=== PATIENT | female | born 1940 | race Caucasian/White ===

== ENCOUNTER 2018-01-30 13:10 | Emergency (ER) | payer MEDICARE, OTHER ==
[~2018-01-30] VITALS: Ht 160 cm; Wt 68.0 kg
--- OUTSIDE RECORDS SUMMARY | 2018-01-30 13:12 | XMS REPORT | Clinical Summary ---
Author Author [facility] Address Unknown Phone Unavailable Care Team Providers Care Director Of Corporate Sponsorships Name Role Phone Asked, Pcp PCP Unavailable Allergies No Known Allergies Current Medications Prescription Sig. Disp. Refills Start End Date Status Date levothyroxine (SYNTHROID, Take 100 mcg by mouth Active LEVOXYL) 100 mcg tablet daily. sertraline (ZOLOFT) 100 Take 100 mg by mouth Active MG tablet daily. ALPRAZolam (XANAX) 0.5 MG Take 0.5 mg by mouth Active tablet nightly as needed for anxiety. aspirin (ECOTRIN) 81 MG Take 81 mg by mouth Active enteric coated tablet daily. traZODone (DESYREL) 50 MG Take 50 mg by mouth Active tablet nightly. 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 01/18/2018 Abstract Cardiology Foreign Schmidt MD 03/11/2017 Transcribe Physical Therapy Tuan Parada MD Neck pain (Primary Dx) Orders after 01/29/2017 Family History Medical History Relation Name Comments Cancer Father Heart disease Father Lymphoma Father Cancer Mother Stroke Other Relation Name Status Comments Father Mother Other Alive Social History Tobacco Use Types Packs/Day Years Used Date Never Smoker Smokeless Tobacco: Never Used Alcohol Use Drinks/Week oz/Week Comments No Sex Assigned at Date Recorded Not on file Last Filed Vital Signs Vital Sign Reading Time Taken Blood Pressure 121/82 01/19/2018 12:56 PM CDT Pulse 113 01/19/2018 12:56 PM CDT Temperature - - Respiratory Rate - - Oxygen Saturation - - Inhaled Oxygen - - Concentration Weight 84.8 kg (187 lb) 01/19/2018 12:56 PM CDT Height 157.5 cm (5' 2") 01/19/2018 12:58 PM CDT Body Mass Index 34.2 01/19/2018 12:56 PM CDT Plan of Treatment Date Type Specialty Care Team Description 02/15/2018 Appointment Procedural Cardiology Foreign Schmidt MD [address] [facility] [address] [place] [address] Health Maintenance Due Date Last Done Comments SHINGRIX VACCINE (#1) 1988 ZOSTER VACCINE 1998 PNEUMOCOCCAL 2003 POLYSACCHARIDE VACCINE AGE 65 AND OVER PNEUMOCOCCAL-13 2003 INFLUENZA VACCINE 04/05/2018 Results * ECG 12 lead (01/19/2018 12:54 PM) Component Value Ref Range Ventricular rate 69 Atrial rate 69 AL interval 162 QRSD interval 150 QT interval 452 QTC interval 484 P axis 1 51 QRS axis 1 -54 T wave axis 63 EKG impression Normal sinus rhythm with sinus arrhythmia-Left axis deviation-Left bundle branch block-Abnormal ECG-No previous ECGs available- Specimen Performing Laboratory [facility] [address] [place] [address] after 01/29/2017 Insurance Payer Benefit Subscriber ID Type Phone Address Plan / Group MEDICARE MEDICARE xxxxxxxxxx Medicare [place], [place] PART A AND B [employer] xxxxxxxxxx [employer]
[2018-01-30] MEDS ORDERED: ASPIR 8181 MG (14:07)
[2018-01-30] MEDS ORDERED: ZOLOFT50 MG PO (14:07)
[2018-01-30] MEDS ORDERED: SYNTHROID100 MCG PO (14:07)
== END 2018-01-30 14:47 | disposition home or self-care (01) ==
LOC: FSED 13:10
DX: M77.32 Calcaneal spur, left foot (principal); E05.00 Thyrotoxicosis with diffuse goiter without thyrotoxic crisis or storm; Z79.82 Long term (current) use of aspirin
CPT/HCPCS: 99284

== ENCOUNTER → 2018-04-11 | Day surgery (SDC) | payer MEDICARE, OTHER ==
[~2018-04-11] MED LIST: ASPIR 8181 MG PO; FENTANYL CITRATE/PF 100MCG/2 ML INJ ONE; LIPITOR40 MG PO; MIDAZOLAM HCL 2 MG/2 ML VIAL ONE; OR PHACO EYE KIT ONE; PLAVIX75 MG PO; PREOP PHACO EYE KIT ONE; SYNTHROID100 MCG PO; TRAZODONE HCL50 MG PO; XANAX0.5 MG PO; ZOLOFT50 MG PO
== END | disposition home or self-care (01) ==
LOC: OR 09:40
PROVIDERS: ATTEND Ophthalmology
DX: H25.11 Age-related nuclear cataract, right eye (principal); F41.9 Anxiety disorder, unspecified; E03.9 Hypothyroidism, unspecified; I25.10 Atherosclerotic heart disease of native coronary artery without angina pectoris; Z79.82 Long term (current) use of aspirin; Z79.02 Long term (current) use of antithrombotics/antiplatelets; Z95.5 Presence of coronary angioplasty implant and graft
CPT/HCPCS: 66984; J2250; V2632

== ENCOUNTER → 2018-04-25 | Day surgery (SDC) | payer MEDICARE, OTHER | END | disposition home or self-care (01) | LOC: OR 09:07 | PROVIDERS: ATTEND Ophthalmology | DX: H25.12 Age-related nuclear cataract, left eye (principal); I25.10 Atherosclerotic heart disease of native coronary artery without angina pectoris; E78.6 Lipoprotein deficiency; F32.9 Major depressive disorder, single episode, unspecified; Z79.02 Long term (current) use of antithrombotics/antiplatelets; Z79.82 Long term (current) use of aspirin; Z95.5 Presence of coronary angioplasty implant and graft | CPT/HCPCS: 66984; J2250; V2632 ==

== ENCOUNTER → 2020-01-16 | Emergency (ER) | payer MEDICARE, OTHER ==
[~2020-01-16] VITALS: Ht 160 cm; Wt 68.0 kg
[~2020-01-16] MED LIST changes: +ACETAMINOPHEN 325 MG TAB PO ONE; +EYE IRRIGATION (OPTH) 120 ML BTL OP ONE; -FENTANYL CITRATE/PF 100MCG/2 ML INJ ONE; +FLUORESCEIN SOD(OPTH) 1 MG STRP ONE; +FLUORESCEIN SOD(OPTH) 1 MG STRP OP ONE; +GENTAMICIN SULFATE 0.3% OP 5 ML BTL ONE; +GENTAMICIN SULFATE 0.3% OPTH OINT 3.5GM TUBE OP ONE; -MIDAZOLAM HCL 2 MG/2 ML VIAL ONE; -OR PHACO EYE KIT ONE; -PREOP PHACO EYE KIT ONE; +TETRACAINE HCL 0.5% OPTH SOLN 4 ML BTL OP ONE
--- NOTE | 2020-01-16 11:47 | NUR ---
MEDIATELYPATIENT PRESENTED TO WINDOW DEMANDING TO BE SEEN AT ONCE FOR SOMETHING IN HER EYE; WHEN ASKED TO SIGN IN SHE BECAME ARGUMENTATIVE, STATING THAT SHE HAD SOMETHING IN HER EYE AND NEEDED TO BE SEEN I
--- NOTE | 2020-01-16 11:50 | NUR ---
RN TO WINDOW TO SEE PATIENT; INFORMED PATIENT THAT SHE WOULD BE BROUGHT BACK SOON POSSIBLE. PATIENT ASKING "JUST HOW LONG AM I SUPPOSED TO WAIT?". INFORMED PATIENT THAT ANOTHER PATIENT WAS CURRENTLY IN TRIAGE AND THAT SHE WOULD BE BROUGHT BACK SHORTLY.
--- OUTSIDE RECORDS SUMMARY | 2020-01-16 11:51 | XMS REPORT | Clinical Summary ---
Author Author [facility] Address Unknown Phone Unavailable Care Team Providers Care [place] Program Coordinator Name Role Phone Armando Castle MD PCP Allergies No Known Allergies Medications End Date Status Medication Sig Dispensed Refills Start Date Active aspirin (ECOTRIN) 81 MG Take 81 mg by 0 enteric coated tablet mouth daily as needed. Active traZODone (DESYREL) 50 MG Take 2 180 tablet 1 tabletIndications: tablets (100 9 Primary insomnia mg total) by mouth nightly. Additional Information Patient taking differently: 50 mg oral nightly, Informant: Self, Reported on 06/27/2019 4:21 PM Active sertraline (ZOLOFT) 100 Take 2 180 tablet 3 MG tabletIndications: tablets (200 0 Anxiety mg total) by mouth daily. Active atorvastatin (LIPITOR) 40 Take 1 tablet 90 tablet 1 MG tablet (40 mg total) 0 by mouth daily. 11/04/2020 Active SYNTHROID 125 mcg Take 1 tablet 90 tablet 3 tabletIndications: (125 mcg 0 Hypothyroidism, total) by unspecified type mouth daily. 11/12/2020 Active amLODIPine (NORVASC) 10 Take 1 tablet 90 tablet 0 mg tablet (10 mg total) 0 by mouth daily. 03/09/2020 Active ALPRAZolam (XANAX) 0.5 MG Take 1 tablet 30 tablet 2 tabletIndications: (0.5 mg 0 Anxiety total) by mouth nightly as needed for anxiety for up to 90 days. 12/24/2020 Active clopidogreL (PLAVIX) 75 Take 1 tablet 90 tablet 0 mg tablet (75 mg total) 0 by mouth daily. 05/20/2019 Discontinued (Reorder) traZODone (DESYREL) 50 MG Take 50 mg by 0 tablet mouth nightly. 04/17/2019 Discontinued (Reorder) atorvastatin (LIPITOR) 40 Take 1 tablet 90 tablet 4 MG tablet (40 mg total) 8 by mouth nightly for 180 days. 03/15/2019 clopidogrel (PLAVIX) 75 Take 1 tablet 90 tablet 4 mg tablet (75 mg total) 8 by mouth daily for 360 days. 10/31/2019 Discontinued (Reorder) sertraline (ZOLOFT) 100 Take 2 180 tablet 3 MG tabletIndications: tablets (200 9 Anxiety mg total) by mouth daily. 11/05/2019 Discontinued (Reorder) levothyroxine (SYNTHROID, Take 1 tablet 90 tablet 3 LEVOXYL) 125 mcg (125 mcg 9 tabletIndications: total) by Postoperative mouth every hypothyroidism morning. 05/31/2019 Discontinued (Reorder) ALPRAZolam (XANAX) 0.5 MG Take 1 tablet 90 tablet 3 tabletIndications: (0.5 mg 9 Anxiety total) by mouth nightly as needed for anxiety for up to 90 days. 10/14/2019 atorvastatin (LIPITOR) 40 Take 1 tablet 90 tablet 1 MG tablet (40 mg total) 9 by mouth nightly for 180 days. 12/10/2019 Discontinued (Reorder) ALPRAZolam (XANAX) 0.5 MG Take 0.5 mg 0 03/05 tablet by mouth 9 nightly as needed. 06/27/2019 Discontinued ALPRAZolam (XANAX) 0.5 MG TAKE 1 TABLET 90 tablet 1 tabletIndications: NIGHTLY 9 Anxiety NEEDED FOR ANXIETY 12/25/2019 Discontinued (Reorder) clopidogrel (PLAVIX) 75 Take 1 tablet 90 tablet 3 mg tablet (75 mg total) 9 by mouth daily. 11/13/2019 Discontinued amLODIPine (NORVASC) 5 mg Take 1 tablet 90 tablet 1 tablet (5 mg total) 9 by mouth daily. 11/02/2019 Discontinued (Reorder) atorvastatin (LIPITOR) 40 Take 40 mg by 0 MG tablet mouth daily. 11/05/2019 Discontinued levothyroxine (SYNTHROID) Take 1 tablet 90 tablet 3 125 mcg (125 mcg 0 tabletIndications: total) by Postoperative mouth every hypothyroidism morning. 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/22/2019 with angina pectoris [facility]: [id number] Abnormal stress echocardiogram 06/22/2019 Overview: [facility] [id number] Postoperative hypothyroidism 09/12/2018 Anxiety 09/12/2018 Hyperlipidemia 09/12/2018 Cervical disc disease 09/12/2018 Overweight (BMI 25.0-29.9) 09/12/2018 Coronary artery disease involving venetie coronary art sharee of [place] heart 03/03/2018 without angina pectoris Abnormal stress echo 02/24/2018 Overview: [facility] [id number] Encounters Care Team Description Date Type Specialty Armando Castle MD Chronic pain of left knee (Primary Dx) 01/05/2020 Orders Only Internal Medicine Liane Shearer MA Med Refill 12/25/2019 Refill Cardiology Armando Castle MD Anxiety (Primary Dx) 12/10/2019 Orders Only Internal Medicine Liane Shearer MA Med Refill 11/13/2019 Refill Cardiology 11/12/2019 Travel Armando Castle MD Hypothyroidism, unspecified type (Primar y Dx) 11/05/2019 Orders Only Internal Medicine Armando Castle MD Postoperative hypothyroidism 11/05/2019 Orders Only Internal Medicine Liane Shearer MA Med Refill 11/02/2019 Refill Cardiology Armando Castle MD Anxiety 10/31/2019 Orders Only Internal Medicine Armando Castle MD Chronic pain of left knee 10/30/2019 Hospital Radiology Encounter Armando Castle MD Chronic pain of left knee (Primary Dx) 10/24/2019 Orders Only Internal Medicine Armando Castle MD Medicare annual wellness visit, subseque nt (Primary Dx); Overweight (BMI 25.0-29.9); Postoperative hypothyroidism; Coronary artery disease involving venetie coronary artery of venetie heart without angina pectoris; Anxiety; Cervical disc disease; Primary osteoarthritis of left knee; IFG (impaired fasting glucose) 08/13/2019 Office Visit Internal Medicine Foreign Schmidt MD pt advised no change in RX 07/27/2019 Telephone Cardiology Foreign Schmidt MD Med Refill 07/10/2019 Refill Cardiology Foreign Schmidt MD Selective coronary angiography [[id number] (C PT)] 06/29/2019 Surgery Procedural CardioForeign Phelan MD 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 (HCC); Abnormal stress echocardiogram; Hyperlipidemia, unspecified hyperlipidemia type 06/29/2019 Hospital Procedural Cardiolo gy Encounter Foreign Schmidt MD Med Refill 06/22/2019 Refill Cardiology Foreign Schmidt MD 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 (HCC) (Primary Dx); Abnormal stress echocardiogram; Hyperlipidemia, unspecified hyperlipidemia type 06/22/2019 Orders Only Cardiology Armando Castle MD Anxiety 05/31/2019 Refill Internal Medicine Armando Castle MD Primary insomnia (Primary Dx) 05/20/2019 Orders Only Internal Medicine Foreign Schmidt MD CAD in venetie artery (Primary Dx) 04/19/2019 Office Visit Cardiology Tania Pinedo MA Med Refill (Atorvastatin) 04/17/2019 Refill Cardiology Tania Pinedo MA Appointment (Confirmed appointments) 04/17/2019 Telephone Cardiology Mckinley Jones RN Re:MyChart message re "breathlessness an d leg weakness' 01/31/2019 Telephone Cardiology after 01/15/2019 Immunizations Name Administration Dates Next Due FLUZONE HIGH-DOSE PF 09/12/2018 Pneumococcal Conjugate 09/12/2018 13-Valent Family History Medical History Relation Name Comments Heart disease Father Lymphoma Father Pancreatic cancer Mother Stroke Other Relation Name Status Comments Father Mother Other Alive Social History Date Tobacco Use Types Packs/Day Years Used Never Smoker Smokeless Tobacco: Never Used Drinks/Week oz/Week Comments Alcohol Use No Sex Assigned at Date Recorded Not on file Industry Job Start Date Occupation Not on file Not on file Not on file Travel End Travel History Travel Start No recent travel history available. Last Filed Vital Signs Reading Time Taken Comments Vital Sign 155/64 08/13/2019 1:12 PM [employer] Blood Pressure 70 08/13/2019 1:12 PM [employer] Pulse 36.4 C (97.6 F) 06/29/2019 5:15 PM CDT Temperature 22 06/29/2019 8:15 PM CDT Respiratory Rate 94% 06/29/2019 8:15 PM CDT Oxygen Saturation - - Inhaled Oxygen Concentration 70.3 kg (155 lb) 08/13/2019 1:12 PM [employer] Weight 160 cm (5' 3") 08/13/2019 1:12 PM [employer] Height 27.46 08/13/2019 1:12 PM [employer] Body Mass Index Plan of Treatment Care Team Description Date Type Specialty Foreign Schmidt MD [address] [address] 04/10/2020 Office Visit Cardiology Health Maintenance Due Date Last Done Comments SHINGLES VACCINES (#1) 1988 65+ PNEUMOCOCCAL VACCINE 09/12/2019 09/12/2018 (2 of 2 - PPSV23) INFLUENZA VACCINE 04/05/2020 09/12/2018, 09/12/2018 Implants Device Identifier Shelf Expiration Date Model / Serial / L ot Implanted Type Area Manufactur er 10/18/2018 [id number] / / [id number] Stent Coronary Syst Synergy (Mr) Coronary N/A: N/A BSC 3.00mm X 32mm - [id number] Stents INTERVENTI Implanted: 03/03/2018 at [facility] (Quantity not on file) CARDIOLOGY Procedures Comments Procedure Name Priority Date/Time Associated Diag nosis XR KNEE 4+ VW LEFT Routine 10/30/2019 Chronic gloria n of left knee 12:47 PM [employer] BASIC METABOLIC PANEL Routine 08/13/2019 Medicare annual wellness 2:16 PM [employer] visit, subsequent HEMOGLOBIN A1C Routine 08/13/2019 IFG (impaired f asting 2:16 PM [employer] glucose) CBC WITH PLATELET AND Routine 08/13/2019 Medicare annual wellness DIFFERENTIAL 2:16 PM [employer] visit, subsequent T4, FREE Routine 08/13/2019 Postoperative 2:16 PM [employer] hypothyroidism THYROID STIMULATING Routine 08/13/2019 Postoperat sathya HORMONE 2:16 PM [employer] hypothyroidism CV SELECTIVE CORONARY Routine 06/29/2019 Coronary artery disease ANGIOGRAPHY 5:05 PM CDT involving venetie co ronary artery of venetie heart with angina pectoris (HCC) Abnormal stress echocardiogram Hyperlipidemia, unspecified hyperlipidemia type ECG PRE/POST OP Routine 06/29/2019 11:16 AM CDT LIPID PANEL Routine 06/25/2019 Coronary artery disease 3:01 PM CDT involving venetie coronary artery of venetie heart with angina pectoris (HCC) Abnormal stress echocardiogram Hyperlipidemia, unspecified hyperlipidemia type CBC WITH PLATELET AND Routine 06/25/2019 Coronary artery disease DIFFERENTIAL 3:01 PM CDT involving venetie co ronary artery of venetie heart with angina pectoris (HCC) Abnormal stress echocardiogram Hyperlipidemia, unspecified hyperlipidemia type COMPREHENSIVE METABOLIC Routine 06/25/2019 James ry artery disease PANEL 3:01 PM CDT involving venetie co ronary artery of venetie heart with angina pectoris (HCC) Abnormal stress echocardiogram Hyperlipidemia, unspecified hyperlipidemia type PROTHROMBIN TIME WITH INR Routine 06/25/2019 Dianna nary artery disease 3:01 PM CDT involving venetie coronary artery of venetie heart with angina pectoris (HCC) Abnormal stress echocardiogram Hyperlipidemia, unspecified hyperlipidemia type TTE STRESS BICYCLE, W Routine 06/15/2019 CAD in n ative artery COLOR, W DOPPLER ([id number]) 12:05 PM CDT (CLINIC) CV TREADMILL STRESS TEST Routine 06/15/2019 CAD i n venetie artery 12:05 PM CDT ECG 12-LEAD Routine 04/19/2019 CAD in venetie a rtery 11:11 AM CDT after 01/15/2019 Results * XR Knee 4+ Vw Left (10/30/2019 12:47 PM [employer]) Specimen Narrative Performed At EXAMINATION: XR KNEE 4 VW LEFT [facility] CLINICAL HISTORY: M25.562 Pain in lef t knee, G89.29 Other chronic pain, Knee pain persistent > 6wks of conservat sathya tx COMPARISON: None. IMPRESSION: There is no evidence of left knee fract ure, dislocation, or joint effusion. Bone mineralization is within normal limits. Mild osteoarthritis of the medial jessica rtment. [facility]-[id number] Dictated and approved by radiology resi dent/fellow: Americo Mauricio M.D. I, Pilo Triana MD, personally reviewed the images and resident's/fellow's findings and agree with the final repor t. Procedure Note Hm Interface, Radiology Results Incoming - 10/30/2019 2:07 PM [employer] EXAMINATION: XR KNEE 4 VW LEFT CLINICAL HISTORY: M25.562 Pain in left knee, G89.29 Other chronic pain, Knee pain persistent > 6wks of conservative tx COMPARISON: None. IMPRESSION: There is no evidence of left knee fracture, dislocation, or joint effusion. Bone mineralization is within normal limits. Mild osteoarthritis of the medial compartment. [facility]-[id number] Dictated and approved by vice president media relations/fellow: Americo Mauricio M.D. I, Pilo Triana MD, personally reviewed the images and resident's/fellow's findings and agree with the final report. Performing Organization Address City/State/Zipcode Ph one Number [facility] [address] [place] [address] * CBC with platelet and differential (08/13/2019 2:16 PM [employer]) Only the most recent of 2 results within the time period is included. WBC 7.1 3.8 - 10.8 [facility] Thousand/uL [facility] [place] RBC 5.01 3.80 - 5.10 [facility] Million/uL [facility] [place] HGB 14.5 11.7 - 15.5 g/dL [facility] [place] HCT 42.6 35.0 - 45.0 % [facility] [place] MCV 85.0 80.0 - 100.0 fL [facility] [place] MCH 28.9 27.0 - 33.0 pg [facility] [place] MCHC 34.0 32.0 - 36.0 g/dL [facility] [place] RDW 13.5 11.0 - 15.0 % [facility] [place] Platelet count 237 140 - 400 [facility] Thousand/uL [facility] [place] MPV 10.3 7.5 - 12.5 fL [facility] [place] Neutrophils, 4,459 1,500 - 7,800 [facility] absolute cells/uL [facility] [place] Lymphocytes, 1,803 850 - 3,900 cells/uL [facility] absolute [facility] [place] Monocytes, 611 200 - 950 cells/uL [facility] absolute [facility] [place] Eosinophils, 199 15 - 500 cells/uL [facility] absolute [facility] [place] Basophils, 28 0 - 200 cells/uL [facility] absolute [facility] [place] Neutrophils 62.8 % [facility] [place] Lymphocytes 25.4 % [facility] [place] Monocytes 8.6 % [facility] [place] Eosinophils 2.8 % [facility] [place] Basophils + RC 0.4 % [facility] [place] Specimen Blood Narrative Performed At FASTING:NO [facility] FASTING: NO Resulting Agency Comment Performing Organization Information: Site ID: [id number] Name: [facility] Address: [address] [place] [phone] Director: Aime Cui Performing Organization Address [facility] one Number [employer] [place] [phone] * Thyroid stimulating hormone (08/13/2019 2:16 PM [employer]) TSH 0.03 (L) 0.40 - 4.50 mIU/L [employer] [place] Specimen Blood Narrative Performed At FASTING:NO [facility] FASTING: NO Resulting Agency Comment Performing Organization Information: Site ID: [id number] Name: [facility] Address: [address] [place] [phone] Director: Aime Cui Performing Organization Address [facility] one Number [employer] [place] [phone] * T4, free (08/13/2019 2:16 PM [employer]) T4, free 1.6 0.8 - 1.8 ng/dL [employer] [place] Specimen Blood Narrative Performed At FASTING:NO [facility] FASTING: NO Resulting Agency Comment Performing Organization Information: Site ID: [id number] Name: [facility] Address: [address] [place] [phone] Director: Aime Cui Performing Organization Address [facility] one Number [employer] [address] [phone] * Hemoglobin A1c (08/13/2019 2:16 PM [employer]) Hemoglobin A1C 5.8 (H) <5.7 % of total Hgb [facility] Comment: [facility] For someone without known [place] diabetes, a hemoglobin A1c value between 5.7% and 6.4% is consistent with prediabetes and should be confirmed with a follow-up test. For someone with known diabetes, a value <7% indicates that their diabetes is well controlled. A1c targets should be individualized based on duration of diabetes, age, comorbid conditions, and other considerations. This assay result is consistent with an increased risk of diabetes. Currently, no consensus exists regarding use of hemoglobin A1c for diagnosis of diabetes for children. Specimen Blood Narrative Performed At FASTING:NO [facility] FASTING: NO Resulting Agency Comment Performing Organization Information: Site ID: RGA Name: [facility] Address: [address] [place] [phone] Director: Aime Cui Performing Organization Address City/State/Zipcode Ph one Number [employer] [address] [phone] * Basic metabolic panel (08/13/2019 2:16 PM [employer]) Glucose 86 65 - 139 mg/dL [facility] Comment: [facility] Non-fasting [place] reference interval BUN 15 7 - 25 mg/dL [facility] [place] Creatinine 0.63 0.60 - 0.88 mg/dL [facility] Comment: [facility] For patients >49 years of age, [place] the reference limit for Creatinine is approximately 13% higher for people identified as -Faroese. EGFR Non-Afr. 85 > OR = 60 [facility] [place] mL/min/1.73m2 [facility] EGFR 98 > OR = 60 [facility] [place] mL/min/1.73m2 [facility] BUN/creatinine NOT APPLICABLE 6 - 22 (calc) [facility] ratio [facility] [place] Sodium 141 135 - 146 mmol/L [facility] [place] Potassium 3.9 3.5 - 5.3 mmol/L [facility] [place] Chloride 107 98 - 110 mmol/L [facility] [place] CO2 23 20 - 32 mmol/L [facility] [place] Calcium 9.2 8.6 - 10.4 mg/dL [facility] [place] Specimen Blood Narrative Performed At FASTING:NO [facility] FASTING: NO Resulting Agency Comment Performing Organization Information: Site ID: [id number] Name: [facility] Address: [address] [place] [phone] Director: Aime Cui Performing Organization Address City/State/Zipcode Ph one Number [employer] [place] [address] [place] [phone] * mobile lab technician procedure (06/29/2019 5:05 PM CDT) Specimen Narrative Performed At [facility] LM: No significant stenosis. LAD: Widely patent proximal-mid RADHA. ~30% stenosis at D2 ostium. LCx: No signifcant stenosis. RCA: No significant stenosis. After obtaining informed consent, the p ataung was brought to the cardiac catheterization suite. The right wrist was prepped and draped in usual sterile fashion. Lidocaine was used as local anesthetic. A mini-puncture needle was used to access the right rad ial artery. A 6 Fr sheath was placed in the right radial artery and 2 00 mcg of nitroglycerin and 200 mcg of verapamil were administered via the radial sheath to prevent radial artery vasospasm. Heparin was given to prevent radial artery occlusion. A J3.5/3DRC catheter(s) was advanced over a guidewire to the aortic root. The guidewire was removed. Coronary ang iography was performed of both the left and right coronary systems using t he catheter(s). The catheter was then removed over a wire. At the conclusion of the procedure the arterial sheath was removed in the catheterization lab and hemostasis was obtained with a Tracelet. The patient was returned to the manager labor relations ho ing area for recovery. The patient tolerated the procedure wit hout difficulty. Moderate sedation was administered with physician supervisionof patient consciousness, respiration, Oxygen satu ration and CO2 monitoring, beginning at 1651 ( time) f or a total period of 14 minutes. I was physically present for the critic al portions of all procedures performed during this episode of care Performing Organization Address City/State/[facility] Ph one Number [facility] [address] [place] [address], * ECG Pre/Post Op (06/29/2019 11:16 AM CDT) Ventricular 59 [facility] rate Atrial rate 59 [facility] MUSE [place] interval 174 [facility] QRSD interval 154 [facility] QT interval 482 [facility] QTC interval 477 [facility] P axis 1 29 [facility] QRS axis 1 -41 [facility] T wave axis 75 [facility] EKG impression Sinus bradycardia-Left axis [facility] MUSE deviation-Left bundle branch block-Abnormal ECG- Specimen Narrative Performed At This result has an attachment that is n ot available. Performing Organization Address City/[facility] Ph one Number [facility] MUSE [address] [place] [address] * Prothrombin time with INR (06/25/2019 3:01 PM CDT) INR 1.0 [facility] Comment: [facility] Reference Range [place] 0.9-1.1 Moderate-intensity Warfarin Therapy 2.0-3.0 Higher-intensity Warfarin Therapy 3.0-4.0 Prothrombin 10.1 9.0 - 11.5 sec [facility] time Comment: DIAGNOSTICS For more information on this [place] test, go to: http://education.Moonfrye.MedAptus/faq/CTZ458 Specimen Blood Narrative Performed At FASTING:NO [facility] FASTING: NO Resulting Agency Comment Performing Organization Information: Site ID: RGA Name: [facility] Address: [address] [place] [phone] Director: Aime Cui Performing Organization Address City/[facility] Ph one Number [facility] [employer] [place] [phone] * Lipid panel (06/25/2019 3:01 PM CDT) Cholesterol, 139 <200 mg/dL [facility] total [facility] [place] HDL cholesterol 49 (L) >50 mg/dL [facility] [place] Triglycerides 113 <150 mg/dL [facility] LDL cholesterol 70 mg/dL (calc) [facility] calculated Comment: DIAGNOSTICS Reference range: <100 [place] Desirable range <100 mg/dL for primary prevention; <70 mg/dL for patients with CHD or diabetic patients with > or = 2 CHD risk factors. LDL-C is now calculated using the Suellen calculation, which is a validated novel method providing better accuracy than the Friedewald equation in the estimation of LDL-C. Grabiel PAGE et al. PABLO. 2013;310(19): 6543-3917 (http://education.Carmine/faq/ZJS967) Cholesterol/HDL 2.8 <5.0 (calc) [facility] ratio [facility] [place] Non-HDL 90 <130 mg/dL (calc) [facility] cholesterol Comment: DIAGNOSTICS For patients with diabetes [place] plus 1 major ASCVD risk factor, treating to a non-HDL-C goal of <100 mg/dL (LDL-C of <70 mg/dL) is considered a therapeutic option. Specimen Blood Narrative Performed At FASTING:NO [facility] FASTING: NO Resulting Agency Comment Performing Organization Information: Site ID: RGA Name: [facility] Address: [address] [place] [phone] Director: Aime Cui Performing Organization Address City/State/Zipcode Ph one Number [employer] [place] [address] [place] [phone] * Comprehensive metabolic panel (06/25/2019 3:01 PM CDT) Glucose 78 65 - 139 mg/dL [facility] Comment: DIAGNOST[facility] Non-fasting [place] reference interval BUN 15 7 - 25 mg/dL [facility] [place] Creatinine 0.73 0.60 - 0.88 mg/dL [facility] Comment: DIAGNOSTICS For patients >49 years of age, [place] the reference limit for Creatinine is approximately 13% higher for people identified as -Faroese. EGFR Non-Afr. 78 > OR = 60 [facility] [place] mL/min/1.73m2 [facility] EGFR 90 > OR = 60 [facility] [place] mL/min/1.73m2 [facility] BUN/creatinine NOT APPLICABLE 6 - 22 (calc) [facility] ratio [facility] [place] Sodium 142 135 - 146 mmol/L [facility] [place] Potassium 3.9 3.5 - 5.3 mmol/L [facility] [place] Chloride 106 98 - 110 mmol/L [facility] [place] CO2 28 20 - 32 mmol/L [facility] [place] Calcium 9.9 8.6 - 10.4 mg/dL [facility] [place] Protein 7.0 6.1 - 8.1 g/dL [facility] [place] Albumin, S 4.3 3.6 - 5.1 g/dL [facility] [place] Globulin, total 2.7 1.9 - 3.7 g/dL [facility] (calc) [facility] [place] Albumin/globuli 1.6 1.0 - 2.5 (calc) [facility] n ratio [facility] Total bilirubin 0.7 0.2 - 1.2 mg/dL [facility] [place] Alkaline 94 33 - 130 U/L [facility] phosphatase [facility] [place] AST 16 10 - 35 U/L [facility] [place] ALT 15 6 - 29 U/L [facility] [place] Specimen Blood Narrative Performed At FASTING:NO [facility] FASTING: NO Resulting Agency Comment Performing Organization Information: Site ID: RGA Name: [facility] Address: [address] [place] [address] Director: Aime Cui Performing Organization Address City/State/Zipcode Ph one Number [facility] [employer] [place] [address] [place] [phone] * Echocardiogram stress Doppler with contrast 3d if needed (06/15/2019 12:05 PM CDT) Specimen Narrative Performed At [facility] Stress Ech ocardiography Report Pat.Name: AMINATA GARCIAS Pat.ID: [id number] St.Date: 06/15/2019 Refer.MD: FOREIGN SCHMIDT MD Exam Time: 11:12:00 AM Study Type:Stress Echo Height: 62in Weight: 157lb BSA: 1.73 m2 Age: 1 1940,78Y Sex: FEMALE BP: 172/74 HR: 57 bpm Sonogrphr: ESTEFANIA Pressley Pat. Stat.:Outpatient Study Status:Final Echo Event ID:[id number] Order ID: [id number] Reason for Study:CAD in [place] artery [ I25.10 (ICD-10-CM)] History / Clinical:Coronary Artery Dise ase Procedures: 2D Echo, Colorflow Doppler Race: C SUMMARY: There was a malfunction with capture of the peak stress images on this patient. Only rest and recovery could be stored. Stress images could therefore not be interpreted. Stress test and ECG are as above. Severe hypertensive response occurred a t low level exercise. Exercise tolerance is significantly impaired. Suggest repeat study after better BP co ntrol. The patient will not be charged for the current study. FINDINGS: LV: LV size is upper limits of normal. There is moderate eccentric LV hypertroph y. LV EF is moderately depressed. Global hypokinesis. Sep caitlin motion is paradoxical secondary to LBBB or conduction a bnormality. Estimated EF is 35-39%. RV: RV size is normal. RV syst olic function is normal. LA: LA volume is mildly enlarg ed. RA: RA size is normal. AO: Aortic root diameter is no rmal. SAM: No pericardial effusion. AV: No structural AV abnormali ties noted. MV: No structural MV abnormali ties noted. PV: No structural PV abnormali ties noted. TV: No structural TV abnormali ties noted. Robles: Diastolic dysfunction Grade I (Mild): Impaired relaxation with normal LV filling pressures. STRESS: Baseline Vital Signs: Test Treadmill ECG Normal sinus, IVCD, LAD Protocol Joseph HR 57 Duration 03:00Atropine 0 Rest BP: 172/74 Max. Workload 4.6 Stress [place] Int: 174 ms Aponte Score -3 Stress QRS Int 148 ms Aponte Score Group moderate risk Stress Test Results: Max HR 122 Target HR [address]: -1.1 mm % Target: 87 % MaxBP 244/83 O2 Sat 95 % Max RPP 16498 Symptoms and Complications: Reason for Stopping Test: Patient achie monico greater than or equal 85% maximal predicted heart rate for age Symptoms Chest pain, Shortness of br eath Other Early termination Stress ECG Interp The S-T segment infante es of LBBB are present, therefore, S-T change with stress are o f uncertain significance, Blood Pressure during stress suggestive of hy pertensive response, Exercise tolerance is impaired MEASUREMENTS: 2D Parasternal Long [place] Ao An 2.4 cm LVPWd 1 cm Ao Rtd 3.4 cm Index 2 cm/m2 LA Ds 3.2 cm IVSd 1.3 cm RWT 0.4 LVIDd 5 cm Index 2.9 cm/m2 LV Mass 221.7 g (87-129 ) LVIDs 3.9 cm LVM Index 128.1 g/m LV%fs 23 % LVOT 2.5 cm LV FracAreaCh LV Ad 25.1 cm (9.5-2 2.3) LV A% 39.7 % LV As 15.1 cm (4-11. 6) LA Sng Plane LA Area 19.1 cm (8.8-23 .4) LA Vol 59.4 ml Index 34.3 ml/m2 LA LngAx 4.9 cm LVOT LVOT Area 4.8 cm Signed 06/19/2019 09:21 AM Ernst Clemente M.D. Procedure Note Interface, Radiology Results In - 06/19/2019 9:22 AM CDT [facility] Stress Echocardiography Report Pat.Name: AMINATA GACRIAS Pat.ID: [id number] .Date: 06/15/2019 Refer.MD: FOREIGN SCHMIDT MD Exam Time: 11:12:00 AM Study Type:Stress Echo Height: 62in Weight: 157lb BSA: 1.73 m2 Age: 1 1940,78Y Sex: FEMALE BP: 172/74 HR: 57 bpm Sonogrphr: ESTEFANIA Pressley Pat. Stat.:Outpatient Study Status:Final Echo Event ID:[id number] Order ID: [id number] Reason for Study:CAD in [place] artery [I25.10 (ICD-10-CM)] History / Clinical:Coronary Artery Disease Procedures: 2D Echo, Colorflow Doppler Race: C SUMMARY: There was a malfunction with capture of the peak stress images on this patient. Only rest and recovery could be stored. Stress images could therefore not be interpreted. Stress test and ECG are as above. Severe hypertensive response occurred at low level exercise. Exercise tolerance is significantly impaired. Suggest repeat study after better BP control. The patient will not be charged for the current study. FINDINGS: LV: LV size is upper limits of normal. There is moderate eccentric LV hypertrophy. LV EF is moderately depressed. Global hypokinesis. Septal motion is paradoxical secondary to LBBB or conduction abnormality. Estimated EF is 35-39%. RV: RV size is normal. RV systolic function is normal. LA: LA volume is mildly enlarged. RA: RA size is normal. AO: Aortic root diameter is normal. SAM: No pericardial effusion. AV: No structural AV abnormalities noted. MV: No structural MV abnormalities noted. PV: No structural PV abnormalities noted. TV: No structural TV abnormalities noted. Robles: Diastolic dysfunction Grade I (Mild): Impaired relaxation with normal LV filling pressures. STRESS: Baseline Vital Signs: Test Treadmill ECG Normal sinus, IVCD, LAD Protocol Joseph HR 57 Duration 03:00Atropine 0 Rest BP: 172/74 Max. Workload 4.6 Stress [place] Int: 174 ms Aponte Score -3 Stress QRS Int 148 ms Aponte Score Group moderate risk Stress Test Results: Max HR 122 Target HR [address]: -1.1 mm % Target: 87 % MaxBP 244/83 O2 Sat 95 % Max RPP [id number] Symptoms and Complications: Reason for Stopping Test: Patient achieved greater than or equal 85% maximal predicted heart rate for age Symptoms Chest pain, Shortness of breath Other Early termination Stress ECG Interp The S-T segment changes of LBBB are present, therefore, S-T change with stress are of uncertain significance, Blood Pressure during stress suggestive of hypertensive response, Exercise tolerance is impaired MEASUREMENTS: 2D Parasternal Long [place] Ao An 2.4 cm LVPWd 1 cm Ao Rtd 3.4 cm Index 2 cm/m2 LA Ds 3.2 cm IVSd 1.3 cm RWT 0.4 LVIDd 5 cm Index 2.9 cm/m2 LV Mass 221.7 g (87-129) LVIDs 3.9 cm LVM Index 128.1 g/m LV%fs 23 % LVOT 2.5 cm LV FracAreaCh LV Ad 25.1 cm (9.5-22.3) LV A% 39.7 % LV As 15.1 cm (4-11.6) LA Sng Plane LA Area 19.1 cm (8.8-23.4) LA Vol 59.4 ml Index 34.3 ml/m2 LA LngAx 4.9 cm LVOT LVOT Area 4.8 cm Signed 06/19/2019 09:21 AM Ernst Clemente M.D. Performing Organization Address City/State/Zipcode Ph one Number [facility] [address] [place] [address] * Cv stress test (06/15/2019 12:05 PM CDT) Resting HR 58 [facility] Resting BP 172 [facility] Peak MET 4.6 [facility] Achieved Protocol Name [facility] MUSE Time in 00:03:00 [facility] Exercise Phase Max Systolic BP 244 [facility] Max Diastolic 83 [facility] BP Max Heart Rate 122 [facility] Max Predicted 140 [facility] Heart Rate Target HR (220 - Age)*85% [facility] Formula Test Indication CAD [facility] Arrhy During Ex [facility] ECG Interp [facility] Before EX ECG Interp [facility] During Ex Ex Summary [facility] MUSE Comment Overall HR [facility] MUSE Response to Exercise Overall BP [facility] M[facility] Response To Exercise Reason for Fatigue [facility] MUSE Termination Stress Test Waveform interpreted in report [facility] SE Impression associated with image study . No interpretation is provided as part of this Stress ECG report.--Electronically Signed By Bryn BERNAL, Ernst Pascal ([id number]), video effects editor Peyton Suarez ([id number]) on 06/19/2019 9:32:37 AM Specimen Narrative Performed At This result has an attachment that is n ot available. Performing Organization Address [facility] [place] [facility] M[facility] [address] [place] [address] * ECG 12 lead (04/19/2019 11:11 AM CDT) Ventricular 62 [facility] rate Atrial rate 62 [facility] [place] interval 162 [facility] QRSD interval 158 [facility] QT interval 470 [facility] QTC interval 477 [facility] P axis 1 46 [facility] QRS axis 1 -39 [facility] T wave axis 60 [facility] EKG impression Sinus rhythm with fusion [facility] complexes and premature atrial complexes with aberrant conduction-Left axis deviation-Left bundle branch block-Abnormal ECG-In automated comparison with ECG of 30-MAR-2018 15:12,-fusion complexes are now present-aberrant conduction is now present- Specimen Narrative Performed At This result has an attachment that is n ot available. Performing Organization Address [facility] one Number [facility] MUSE [address] [place] [address] after 01/15/2019 Insurance Type Payer Benefit Subscriber ID Effective Phone Address Plan / Dates Group Medicare MEDICARE MEDICARE xxxxxxxxxxx [id number] Z[place]ID[place], PART A AND resent [place] Commercial [employer] [place] xxxxxxxxxx 2012-P L LIFE [place] Advance Directives For more information, please contact: [phone] Patient Automation Design Engineer Explanation Type Date Recorded Advance Directives, 10/30/2019 12:21 PM Living Will and Medical Power of Relocation Director
--- OUTSIDE RECORDS SUMMARY | 2020-01-16 11:51 | XMS REPORT ---
Author Author [facility] t Organization [facility] Address [address] [place] [address] Phone Unavailable Care Team Providers Care Airborne Weapons Technical Manager Name Role Phone NONSTAFF PCP Unavailable Joanie Castle MD Attphys Manfred UMANA, Liane Attphys Unavailable Dionisio Schmidt MD Attphys Khris UMANA, Tania Attphys Unavailable Robert PÉREZ, Mckinley Attphys Unavailable FOREIGN SCHMIDT Admphysimon Unavailable Payers Payer Name Policy Type Policy Number Effective Date Expiration Date S thai MEDICAREMEDICARE PART A AND Bxxxxxxxxxxx2003-PresentLINDSAY MIRE[place] 2003 00:00:00 [facility] AETNACONTINENTAL LIFE INS CO OF GHENTxxxxxxxxxx2012- PresentCommercial xxxxxxxxxx 2012 00:00:00 [facility] Medicare A & B [id number] 2003 00:00:00 [facility] Aetna Medicare Supplement Plan [id number] [facility] Problems Condition Name Condition Details Condition Category Status Onset Date Resolution Date Last Treatment Date Treating Clinician Comments Source 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 Disease Active 2019-06-22 00:00:00 Overview: Added automatically from request for surgery [id number] Dejuan Warren Abnormal stress echocardiogram Abnormal stress echocardiogram Disea se Active 2019-06-22 00:00:00 Overview: Ad ded automatically from request for surgery [id number] Dejuan Warren Postoperative hypothyroidism Postoperative hypothyroidism Disease Active 2018-09-12 00:00:00 Dejuan Warren Anxiety Anxiety Disease Active 2018-09-12 00:00:00 Dejuan Warren Hyperlipidemia Hyperlipidemia Disease Active 2018-09-12 00:00:00 Dejuan Warren Cervical disc disease Cervical disc disease Disease Active 201 05-06-08 00:00:00 Dejuan nguyen Overweight (BMI 25.0-29.9) Overweight (BMI 25.0-29.9) Disease Active 2018-09-12 00:00:[address] Coronary artery disease involving inupiat coronary artery of inupiat heart without angina pectoris Coronary artery disease involving inupiat coronary artery of inupiat heart without angina pectoris Disease Active 2018-03-03 00:00:00 Dejuan Warren Abnormal stress echo Abnormal stress echo Disease Active 00:00:00 Overview: Added automatically from reque st for surgery [id number] Dejuan Warren Allergies, Adverse Reactions, Alerts This patient has no known allergies or adverse reactions. Family History Family Member Diagnosis Comments Start Date Stop Date Source Natural father Heart disease Dejuan Warren Natural father Lymphoma [facility] Natural mother Pancreatic cancer Corine Warren Other Stroke Dejuan Sorensen ist Social History Social Habit Start Date Stop Date Quantity Comments Source Sex Assigned At Corine Warren Alcohol intake 2019-08-13 00:00:00 2019-08-13 00:00:00 Current non-drinker of alcohol (finding) Dejuan Warren Smoking Status Start Date Stop Date Source Never smoker Dejuan nguyen Medications Ordered Medication Name Filled Medication Name Start Date Stop Da te Current Medication? Ordering Clinician Indication Dosage Frequency Signature (SIG) Comments Components Source clopidogreL (PLAVIX) 75 mg tablet 2019-12-25 00:00:00 2020 04:59:00 Yes 75mg QD Take 1 tablet (75 mg total) by mouth zarina ly. Dejuan Warren ALPRAZolam (XANAX) 0.5 MG tablet 2019-12-10 00:00:00 03-10 04:59:00 Yes [id number] .5mg QD Take 1 tablet (0 .5 mg total) by mouth nightly as needed for anxiety for up to 90 days. Dejuan yu amLODIPine (NORVASC) 10 mg tablet 2019-11-13 00:00:00 2020 05:59:00 Yes 10mg QD Take 1 tablet (10 mg total) by mouth zarina Warren SYNTHROID 125 mcg tablet 2019-11-05 00:00:00 2020-11-05 05:5 9:00 Yes [id number] 125ug QD Take 1 tablet (125 mcg total) by mouth daily. Dejuan Warren levothyroxine (SYNTHROID) 125 mcg tablet 2019-11 00:00:00 2019-11-05 00:00:00 No [id number] 125ug QD Take 1 tablet (125 mcg total) by mouth every morning. Dejuan Warren atorvastatin (LIPITOR) 40 MG tablet 2019-11-02 21:05:4 2 2019-11-02 00:00:00 No 40mg QD Take 40 mg by mouth daily. Dejuan Warren atorvastatin (LIPITOR) 40 MG tablet 2019-11-02 00:00:00 Yes 40mg QD Take 1 tablet (40 mg total) by mouth daily. Mike Warren sertraline (ZOLOFT) 100 MG tablet 2019-10-31 00:00:00 Ye simon [id number] 200mg QD Take 2 tablets (200 mg total) by mouth daily. Dejuan Warren aspirin (ECOTRIN) 81 MG enteric coated tablet 2019-08-13 19:14:4 2 Yes 81mg Q24H Take 81 mg by mouth daily as needed. Dejuan Warren amLODIPine (NORVASC) 5 mg tablet 2019-07-10 00:00:00 2019-11 00:00:00 No 5mg QD Take 1 tablet (5 mg total) by mouth daily. Dejuan Warren clopidogrel (PLAVIX) 75 mg tablet 2019-06-22 00:00:00 2019 00:00:00 No 75mg QD Take 1 tablet (75 mg total) by mouth zarina Warren ALPRAZolam (XANAX) 0.5 MG tablet 2019-05-31 00:00:00 2019-06 00:00:00 No [id number] TAKE 1 TABLET NIGHTLY NEEDED FOR ANXIETY Dejuan Warren traZODone (DESYREL) 50 MG tablet 2019-05-21 02:46:53 2019-05 00:00:00 No 50mg QD Take 50 mg by mouth nightly. Dejuan Warren traZODone (DESYREL) 50 MG tablet 2019-05-20 00:00:00 Yes [id number] 100mg QD Take 2 tablets (100 mg total) by mouth nightly. Dejuan Warren atorvastatin (LIPITOR) 40 MG tablet 2019-04-17 00:00:0 0 2019-10-15 05:59:00 No 40mg QD Take 1 tablet (40 mg total) by mouth nig htly for 180 days. Dejuan Warren ALPRAZolam (XANAX) 0.5 MG tablet 2019-03-16 00:00:00 2019-12 00:00:00 No .5mg QD Take 0.5 mg by mouth nightly as needed. Dejuan Warren ALPRAZolam (XANAX) 0.5 MG tablet 2018-12-05 00:00:00 2019-05 00:00:00 No [id number] .5mg QD Take 1 tablet (0.5 m g total) by mouth nightly as needed for anxiety for up to 90 days. Dejuan yu levothyroxine (SYNTHROID, LEVOXYL) 125 mcg tablet 2018-10-22 00:00:00 2019-11-05 00:00:00 No [id number] 125ug QD Take 1 tablet (125 mcg total) by mouth every morning. Dejuan Warren sertraline (ZOLOFT) 100 MG tablet 2018-09-12 00:00:00 2019 00:00:00 No [id number] 200mg QD Take 2 tablets (200 mg total) by mouth d aily. Dejuan Warren atorvastatin (LIPITOR) 40 MG tablet 2018-03-20 00:00:0 0 2019-04-17 00:00:00 No 40mg QD Take 1 tablet (40 mg total) by mouth nig htly for 180 days. Dejuan Warren clopidogrel (PLAVIX) 75 mg tablet 2018-03-20 00:00:00 2018 04:59:00 No 75mg QD Take 1 tablet (75 mg total) by mouth zarina ly for 360 days. Dejuan Warren Aspirin (Aspir 81) 81 Mg Tablet. Aspirin (Aspir 81) 81 Mg Tablet.dr Yes [facility] Levothyroxine Sodium (Synthroid) 100 Mcg Tab Levothyro xine Sodium (Synthroid) 100 Mcg Tab Yes 100 Today At 6:00AM [facility] Sertraline Hcl (Zoloft) 50 Mg Tablet Sertraline Hcl (Zoloft) 50 Mg Tablet Yes 100 Daily [facility] Immunizations Ordered Immunization Name Filled Immunization Name Date Status Comments Source Pneumococcal Conjugate 13-Valent 2018-09-12 00:00:00 Compl eted Dejuan Warren FLUZONE HIGH-DOSE PF 2018-09-12 00:00:00 Completed Dejuan Warren Vital Signs Vital Name Observation Time Observation Value Comments Source Systolic blood pressure 2019-08-13 19:12:00 155 mm[Hg] Dejuan Warren Diastolic blood pressure 2019-08-13 19:12:00 64 mm[Hg] Dejuan Warren Heart rate 2019-08-13 19:12:00 70 /min Dejuan Warren Body height 2019-08-13 19:12:00 160 cm Dejuan Warren Body weight 2019-08-13 19:12:00 70.308 kg Dejuan Warren BMI 2019-08-13 19:12:00 27.46 kg/m2 Dejuan Warren Respiratory rate 2019-06-30 01:15:00 22 /min Lindsay Warren Oxygen saturation in Arterial blood by Pulse oximetry 2018-09 01:15:00 94 /min Dejuan Warren Body temperature 2019-06-29 22:15:00 36.44 Lisa Lindsay Warren Procedures Procedure Date / Time Performed Performing Clinician Sourc e XR KNEE 4+ VW LEFT 2019-10-30 18:47:51 Armando Castle THYROID STIMULATING HORMONE 2019-08-13 20:16:00 Armando Castle T4, FREE 2019-08-13 20:16:00 Armando Castle CBC WITH PLATELET AND DIFFERENTIAL 2019-08-13 20:16:00 Armando Castle HEMOGLOBIN A1C 2019-08-13 20:16:00 Armando Castle BASIC METABOLIC PANEL 2019-08-13 20:16:00 Donal Castlesus JeovanySteve Warren CV SELECTIVE CORONARY ANGIOGRAPHY 2019-06-29 22:05:07 Melinda Schmidt ECG PRE/POST OP 2019-06-29 16:16:26 Foreign Schmidt PROTHROMBIN TIME WITH INR 2019-06-25 20:01:00 Foreign Schmidt COMPREHENSIVE METABOLIC PANEL 2019-06-25 20:01:00 Foreign Schmidt CBC WITH PLATELET AND DIFFERENTIAL 2019-06-25 20:01:00 Foreign Schmidt LIPID PANEL 2019-06-25 20:01:00 Foreign Schmidt CV TREADMILL STRESS TEST 2019-06-15 17:05:00 Foreign Schmidt TTE STRESS BICYCLE, W COLOR, W DOPPLER ([id number]) (CLINIC) 2018 17:05:00 Foreign Schmidt ECG 12-LEAD 2019-04-19 16:11:55 Foreign Schmidt Plan of Care Planned Activity Planned Date Details Comments Source Future Scheduled Test [code = ] Future Scheduled Test [code = ] Future Scheduled Test [code = ] Encounters Start Date/Time End Date/Time Encounter Type Admission Type [facility] Care Department Encounter ID Source 2019-10-30 00:00:00 2019-10-30 00:00:00 Outpatient [facility] [id number] [facility] 2019-06-29 00:00:00 2019-06-29 00:00:00 Outpatient FOREIGN SCHMIDT [facility] 021 [id number] [facility] 2018-01-30 13:10:00 2018-01-30 14:47:00 Departed Emergency Room [facility] [id number] [facility] Results Test Description Test Time Test Comments Results Result Comments Source XR Knee 4+ Vw Left 2019-10-30 20:04:10 Hm Interf brandee, Radiology Results 10/30/2019 2:07 PM CSTEXAMINATION: XR KNEE 4 VW LEFTCLINICAL HISTORY: M25.562 Pain in left knee, G89.29 Other chronic pain, Knee pain persistent > 6wks of conservative txCOMPARISON: None.IMPRESSION:There is no evidence of left knee fracture, dislocation, or joint effusion. Bone mineralization is within normal limits.Mild osteoarthritis of the medial compartment.[facility]-[id number] and approved by vice president of talent acquisition/fellow: Scott Gonzáles, Ni Triana MD, personally reviewed the images and resident's/fellow's findings and agree with the final report. [facility] Basic metabolic panel 2019-08-14 07:55:00 Test Item Glucose (test code = 2345-7) 86 mg/dL 65-139 Non-fasting reference interval BUN (test code = 3094-0) 15 mg/dL 7-25 Creatinine (test code = 2160-0) 0.63 mg/dL 0.6-0.88 For patients >49 years of age, the reference limitfor Creatinine is approximately 13% higher for peopleidentified as -Nauruan. EGFR Non-Afr. Nauruan (test code = 2775) 85 > OR = 60 mL /min/1.73m2 EGFR (test code = 42008-1) 98 > OR = 60 mL/min/1.73m2 BUN/creatinine ratio (test code = 3097-3) NOT APPLICABLE 6- 22 (souleymane c) Sodium (test code = 2951-2) 141 mmol/L 135-146 Potassium (test code = 2823-3) 3.9 mmol/L 3.5-5.3 Chloride (test code = 2075-0) 107 mmol/L 98-110 CO2 (test code = 8-9) 23 mmol/L 20-32 Calcium (test code = 24042-1) 9.2 mg/dL 8.6-10.4 VAISHALI (test code = VAISHALI) FASTING:NOFASTING: NO RAC (test code = RAC) Performing Organization Info rmation: Site ID: RGA Name: [facility] Address: [address] [place] [phone] Director: Aime WarrenHemoglobin [id number] 07:55:00* Test Item Value Reference Range Interpretation Comments Hemoglobin A1C (test code = 4548-4) 5.8 <5.7 % of total Hg b H For someone without known diabetes, a hemoglobin A1c value between 5.7% and 6.4% is consistent withprediabetes and should be confirmed with a follow-up test. For someone with known diabetes, a value <7%indicates that their diabetes is well controlled. [id number] should be individualized based on duration ofdiabetes, age, comorbid conditions, and otherconsiderations. This assay result is consistent with an increased riskof diabetes. Currently, no consensus exists regarding use ofhemoglobin A1c for diagnosis of diabetes for children. VAISHALI (test code = VAISHALI) FASTING:NOFASTING: NO RAC (test code = RAC) Performing Organization Info rmation: Site ID: JUAN JOSÉ Name: [facility] Address: [address] [place] [address] Director: Aime Cui Lab Interpretation (test code = 84185-1) Abnormal [facility], [id number] 07:55:00* Test Item Value Reference Range Interpretation Comments T4, free (test code = 3024-7) 1.6 ng/dL 0.8-1.8 VAISHALI (test code = VAISHALI) FASTING:NOFASTING: NO RAC (test code = RAC) Performing Organization Info rmation: Site ID: JUAN JOSÉ Name: [facility] Address: [address] [place] [address] Director: Aime Cui [facility] MethodistThyroid stimulating [id number] 07:55:00* Test Item Value Reference Range Interpretation Comments TSH (test code = 3016-3) 0.03 0.40- 4.50 mIU/L L VAISHALI (test code = VAISHALI) FASTING:NOFASTING: NO RAC (test code = RAC) Performing Organization Info rmation: Site ID: ABYA Name: [facility] Address: [address] [place], [place] [id number] Director: Aime Cui Lab Interpretation (test code = 55050-4) Abnormal [facility] with platelet and [id number] 07:55:00* Test Item Value Reference Range Interpretation Comments WBC (test code = 6690-2) 7.1 3.8- 10.8 Thousand/uL RBC (test code = 789-8) 5.01 3.80- 5.10 Million/uL HGB (test code = 718-7) 14.5 g/dL 11.7-15.5 HCT (test code = 4544-3) 42.6 % 35-45 MCV (test code = 787-2) 85.0 fL 80-100 MCH (test code = 785-6) 28.9 pg 27-33 MCHC (test code = 786-4) 34.0 g/dL 32-36 RDW (test code = 788-0) 13.5 % 11-15 Platelet count (test code = 777-3) 237 140- 400 Thousand/u L MPV (test code = 776-5) 10.3 fL 7.5-12.5 Neutrophils, absolute (test code = 751-8) 4459 1,500 - 7,80 0 cells/uL Lymphocytes, absolute (test code = 731-0) 1803 850- 3,900 c ells/uL Monocytes, absolute (test code = 742-7) 611 200- 950 cells /uL Eosinophils, absolute (test code = 711-2) 199 15- 500 cell s/uL Basophils, absolute (test code = 704-7) 28 0- 200 cells/u L Neutrophils (test code = 770-8) 62.8 % Lymphocytes (test code = 736-9) 25.4 % Monocytes (test code = 5905-5) 8.6 % Eosinophils (test code = 713-8) 2.8 % Basophils + RC (test code = 706-2) 0.4 % VAISHALI (test code = VAISHALI) FASTING:NOFASTING: NO RAC (test code = RAC) Performing Organization Info rmation: Site ID: RGA Name: [facility] Address: [address] [place] [phone] Director: Aime Cui [facility] [id number] 00:44:52 LM: No significant stenosis. LAD: Widely patent proximal-mid RADHA. ~30% stenosis at D2 ostium. LCx: No signifcant stenosis. RCA: No significant stenosis. After obtaining informed consent, the patient was brought to the cardiac catheterization suite. The right wrist was prepped and draped in usual sterile fashion. Lidocaine was used as local anesthetic. A mini-puncture needle was used to access the right radial artery. A 6 Fr sheath was placed in the right radial artery and 200 mcg of nitroglycerin and 200 mcg of verapamil were administered via the radial sheath to prevent radial artery vasospasm. Heparin was given to prevent radial artery occlusion. A J3.5/3DRC catheter(s) was advanced over a guidewire to the aortic root. The guidewire was removed. Coronary angiography was performed of both the left and right coronary systems using the catheter(s). The catheter was then removed over a wire. At the conclusion of the procedure the arterial sheath was removed in the catheterization lab and hemostasis was obtained with a Tracelet. The patient was returned to the laboratory worker holding area for recovery. The patient tolerated the procedure without difficulty. Moderate sedation was ad ministered with physician supervisionof patient consciousness, respiration, Oxyg en saturation and CO2 monitoring, beginning at 1651 ( time) for a tota l period of 14 minutes. I was physically present for the critical portions of al l procedures performed during this episode of care Dejuan Moya Pre/Post [id number] 00:04:24* Test Item Value Reference Range Interpretation Comments Ventricular rate (test code = 253) 59 Atrial rate (test code = 255) 59 NE interval (test code = 266) 174 QRSD interval (test code = 260) 154 QT interval (test code = 264) 482 QTC interval (test code = 265) 477 P axis 1 (test code = 267) 29 QRS axis 1 (test code = 268) -41 T wave axis (test code = 270) 75 EKG impression (test code = 273) Sinus bradycardia-Lef t axis deviation-Left bundle branch block-Abnormal ECG- Dejuan WarrenComprehensive metabolic [id number] 10:04:00* Test Item Value Reference Range Interpretation Comments Glucose (test code = 2345-7) 78 mg/dL 65-139 Non-fasting reference interval BUN (test code = 3094-0) 15 mg/dL 7-25 Creatinine (test code = 2160-0) 0.73 mg/dL 0.6-0.88 For patients >49 years of age, the reference limitfor Creatinine is approximately 13% higher for peopleidentified as -Nauruan. EGFR Non-Afr. Nauruan (test code = 2775) 78 > OR = 60 mL /min/1.73m2 EGFR (test code = 75228-9) 90 > OR = 60 mL/min/1.73m2 BUN/creatinine ratio (test code = 3097-3) NOT APPLICABLE 6- 22 (souleymane c) Sodium (test code = 2951-2) 142 mmol/L 135-146 Potassium (test code = 2823-3) 3.9 mmol/L 3.5-5.3 Chloride (test code = 2074-0) 106 mmol/L 98-110 CO2 (test code = 2027-9) 28 mmol/L 20-32 Calcium (test code = 67803-4) 9.9 mg/dL 8.6-10.4 Protein (test code = 2885-2) 7.0 g/dL 6.1-8.1 Albumin, S (test code = 1751-7) 4.3 g/dL 3.6-5.1 Globulin, total (test code = 45538-6) 2.7 1.9- 3.7 g/dL (c alc) Albumin/globulin ratio (test code = 1759-0) 1.6 1.0- 2.5 ( calc) Total bilirubin (test code = 1974-2) 0.7 mg/dL 0.2-1.2 Alkaline phosphatase (test code = 6768-6) 94 U/L 33-130 AST (test code = 1920-8) 16 U/L 10-35 ALT (test code = 1742-6) 15 U/L 6-29 VAISHALI (test code = VAISHALI) FASTING:NOFASTING: NO RAC (test code = RAC) Performing Organization Info rmation: Site ID: RGA Name: [facility] Address: [address] [place] [phone] Director: Aime Zaidi MethodistLipid [id number] 10:04:00* Test Item Value Reference Range Interpretation Comments Cholesterol, total (test code = 2093-3) 139 mg/dL <200 HDL cholesterol (test code = 2085-9) 49 mg/dL >50 L Triglycerides (test code = 2571-8) 113 mg/dL <150 LDL cholesterol calculated (test code = 94221-9) 70 mg/dL (calc) Reference range: <100 Desirable range <100 mg/dL for primary prevention; <70 mg/dL for patients with CHD or diabetic patients with > or = 2 CHD risk factors. LDL-C is now calculated using the Suellen calculation, which is a validated novel method providing better accuracy than the Friedewald equation in the estimation of LDL-C. Grabiel PAGE et al. PABLO. 2013;310(19): 2925-3712 (http:/ /education.[employer]/faq/YPI992) Cholesterol/HDL ratio (test code = 9830-1) 2.8 <5.0 (calc) Non-HDL cholesterol (test code = 79863-7) 90 <130 mg/dL ( calc) For patients with diabetes plus 1 major ASCVD risk factor, treating to a non-HDL-C goal of <100 mg/dL (LDL-C of <70 mg/dL) is considered a therapeutic option. VAISHALI (test code = VAISHALI) FASTING:NOFASTING: NO RAC (test code = RAC) Performing Organization Info rmation: Site ID: JUAN JOSÉ Name: [facility] Address: [address] [place] [phone] Director: Aime Cui Lab Interpretation (test code = 27258-5) Abnormal [facility] MethodistProthrombin time with [id number] 10:04:00* Test Item Value Reference Range Interpretation Comments INR (test code = 6301-6) 1.0 Ref erence Range 0.9-1.1Moderate-intensity Warfarin Therapy 2.0-3.0Higher-intensity Warfarin Therapy 3.0-4.0 Prothrombin time (test code = 5902-2) 10.1 9.0- 11.5 sec For more information on this test, go to:http://education.[employer]/faq/LYT273 VAISHALI (test code = VAISHALI) FASTING:NOFASTING: NO RAC (test code = RAC) Performing Organization Info rmation: Site ID: RGA Name: [facility] Address: [facility] [place] [address] Director: Aime Moya 12 [id number] 22:45:14* Test Item Value Reference Range Interpretation Comments Ventricular rate (test code = 253) 62 Atrial rate (test code = 255) 62 NE interval (test code = 266) 162 QRSD interval (test code = 260) 158 QT interval (test code = 264) 470 QTC interval (test code = 265) 477 P axis 1 (test code = 267) 46 QRS axis 1 (test code = 268) -39 T wave axis (test code = 270) 60 EKG impression (test code = 273) Sinus rhythm with fus ion complexes and premature atrial complexes with aberrant conduction-Left axis deviation-Left bundle branch block-Abnormal ECG-In automated comparison with ECG of 30-MAR-2018 15:12,-fusion complexes are now present-aberrant conduction is now present- Dejuan Warren
--- NOTE | 2020-01-16 11:55 | NUR ---
PATIENT BROUGHT BACK TO TRIAGE. PATIENT HYPERVENTILATING AND ANXIOUS IN TRIAGE. PATIENT ASKED WHAT SHE THOUGHT SHE GOT IN HER EYE, AND PATIENT STATED "WELL, IF I KNEW THAT I WOULDN'T BE HERE! AREN'T YOU SUPPOSED TO FIGURE THAT OUT?". QUESTION REPHRASED TO - WHAT WERE YOU DOING WHEN YOU GOT SOMETHING IN YOUR EYE? PATIENT STATED SHE WAS WASHING HER HANDS IN THE RESTROOM AND DECIDED TO WASH HER FACE AND THAT IS WHEN SHE GOT SOMETHING IN HER LEFT EYE. PATIENT STATES THAT SHE RINSED HER EYE WITH WATER PRIOR TO ARRIVAL BUT IT DID NOT HELP.
--- NOTE | 2020-01-16 12:05 | NUR ---
DR LEACH IN TRIAGE FOR EVALUATION; TETRACAINE DROPS PLACED IN LEFT EYE FOR COMFORT; PATIENT INFORMED SHE WOULD BE TAKEN TO A ROOM. PATIENT ASKING IF THERE WAS ANYONE ELSE IN THE ROOM AND WAS THERE ANYONE "IN FRONT OF HER"; WHEN RN ASKED FOR CLARIFICATION, PATIENT DEMANDED TO KNOW NURSES FIRST AND LAST NAME. PATIENT TAKEN TO ROOM 9 FOR FURTHER EVALUATIUON AND TREATMENT
--- NOTE | 2020-01-16 12:44 | Emergency Department Note ---
History of Present Illnes History of Present Illness Chief Complaint: General Medicine Complaints History of Present Illness This is a 79 year old female PATIENT IN FROM HOME WITH COMPLAINTS OF SOMETHING IN LEFT EYE; STATES SHE WAS WASHING HER HANDS WITH SOAP IN THE RESTROOM AND WENT TO WASH HER FACE, AND GOT SOMETHING IN HER LEFT EYE. Historian: Patient Arrival Mode: Car Rn Post Partum Required: No Onset (how long ago): minute(s) Location: LEFT EYE Quality: PAIN Radiation: non-radiation Severity: severe Onset quality: sudden Timing of current episode: constant Progression: unchanged (NO IMPROVEMENT WITH IRRIGATING EYE) Chronicity: new Relieving factors: none Exacerbating factors: none Associated symptoms: denies other symptoms Treatments prior to arrival: none Past Medical/Family History Physician Review I have reviewed the patient's past medical and family history. Any updates have been documented here. Past Medical History Recent Fever: No Clinical Suspicion of Infectio: No New/Unexplained Change in Ment: No Past Medical History: Hypertension, Hypothyroidism, Anxiety, Depression, Hyperlipedemia Other Medical History: GRAVES DISEASE Past Surgical History: PCI Other Surgery: BILATERAL THUMB SURGERY Social History Smoking Cessation: Never Smoker Counseling Performed: No Alcohol Use: None Any Illegal Drug Use: No TB Exposure/Symptoms: No Physically hurt or threatened: No Family History Family history of heart diseas: No Other Last Tetanus: UNK Review of Systems Review of Systems Constitutional: no symptoms EENTM: eye pain Cardiovascular: no symptoms Respiratory: no symptoms Gastrointestinal: no symptoms Genitourinary: no symptoms Musculoskeletal: no symptoms Integumentary: no symptoms Neurological: no symptoms Psychological: no symptoms Endocrine: no symptoms Hematological/Lymphatic: no symptoms Review of other systems All other systems reviewed and negative. Physical Exam Related Data Allergies: Coded Allergies: No Known Allergies (Unverified , 01/30/18) Triage Vital Signs Vital Signs Date Time Temp Pulse Resp B/P (MAP) Pulse Ox O2 Delivery O2 Flow Rate FiO2 01/16/20 11:55 96.9 71 18 165/85 97 Physical Exam CONSTITUTIONAL Constitutional: well-developed HENT HENT: normocephalic, atraumatic HENT - Ear: left TM normal EYES LEFT CONJ INJECTED, NO FB SEEN, NO ABRASION WITH FLUORESCEIN STAIN Eyes: PERRL NECK Neck: ROM normal PULMONARY Pulmonary: effort normal, breath sounds normal CARDIOVASCULAR Cardiovascular: regular rhythm GASTROINTESTINAL Abdominal: soft, nontender GENITOURINARY Genitourinary: exam deferred SKIN Skin: warm, dry MUSCULOSKELETAL Musculoskeletal: ROM normal NEUROLOGICAL Neurological: alert, oriented x 3, no gross motor or sensory deficits PSYCHOLOGICAL Psychiatric/behavioral: mood/affect normal Procedures Foreign Body - Eye Location: left eye Topical anesthetic: proparacaine Critical Care Time Subsequent provider I assumed direction of critical care for this patient from another provider of my specialty. Assessment & Plan Assessment & Plan Problems: (1) Chemical conjunctivitis of left eye Assessment & Plan PROPARACAINE, LEFT EYE IRRIGATED, NO FB/ABRASION WITH FLUORESCEIN Depart Disposition: HOME, SELF-CARE Last Vital Signs Date Time Temp Pulse Resp B/P (MAP) Pulse Ox O2 Delivery O2 Flow Rate FiO2 01/16/20 11:55 96.9 71 18 165/85 97 Home Meds Reported Medications Atorvastatin Calcium (LIPITOR) 40 Mg Tablet, 40 MG PO DAILY 04/10/18 Clopidogrel Bisulfate* (PLAVIX) 75 Mg Tablet, 75 MG PO DAILY, #30 TAB 04/10/18 Alprazolam (XANAX) 0.5 Mg Tablet, 0.5 MG PO PRN 04/10/18 Trazodone Hcl (TRAZODONE HCL) 50 Mg Tablet, 50 MG PO HS, #30 TAB 04/10/18 Aspirin (ASPIR 81) 81 Mg Tablet.dr, 81 MG PO DAILY 01/30/18 Sertraline Hcl (ZOLOFT) 50 Mg Tablet, 100 MG PO DAILY, #30 TAB 01/30/18 Levothyroxine Sodium (SYNTHROID) 100 Mcg Tab, 100 MCG PO 0600, #30 TAB 01/30/18 Medications in the ED GENTAMYCIN OPHTHAL OINTMENT, CONTINUE TID X 5 DAYS Eye Irrigation Solution 50 ml ONCE ONCE OP ; Start 01/16/20 at 12:00; Stop 01/16/20 at 12:01; Status DC Fluorescein Sodium 1 mg ONCE ONCE OP ; Start 01/16/20 at 12:00; Stop 01/16/20 at 12:01; Status DC Tetracaine HCl 1 ml ONCE ONCE OP Last administered on 01/16/20at 12:05; Admin Dose 1 ML; Start 01/16/20 at 12:00; Stop 01/16/20 at 12:01; Status DC Fluorescein Sodium 1 mg STK-MED ONCE .ROUTE ; Start 01/16/20 at 12:08; Stop 01/16/20 at 12:03; Status DC ONUR LEACH MD January 16, 2020 12:44
--- NOTE | 2020-01-16 13:00 | NUR ---
PATIENT STOPPED THIS NURSE IN THE HALLWAY YELLING "I NEED TO LEAVE RIGHT NOW! GIVE ME MY MEDICINE SO I CAN GO HOME, WHERE IS MY NURSE THIS IS RIDICULOUS! MY EYE STILL HURTS"; EXPLAINED THAT HER PRIMARY NURSE IS IN WITH ANOTHER PATIENT, AND THAT SOON THIS NURSE WAS ABLE TO TAKE CARE OF THE AMBULANCE PATIENT, WOULD ASSIST IN GETTING HER DISCHARGE INSTRUCTIONS. PATIENT CONTINUED TO BERATE THIS NURSE, FOLLOWING HER INTO THE HALLWAY AND ASKING "WHAT IS TAKING SO LONG? WHEN WILL IT BE DONE? I HAVE TO GO, I HAVE THINGS TO DO! MY IS IN A WHEELCHAIR AND HOIME ALONE!" AGAIN EXPLAINED TO PATIENT THAT SHE NEEDED TO STAY IN HER ROOM AND SOON THIS NURSE WAS FINISHED WITH HER CURRENT PATIENT SHE WOULD BE THE TOP PRIORITY. PATIENT STILL UNHAPPY AND YELLING, BUT WENT BACK INTO HER ROOM
== END | disposition home or self-care (01) ==
LOC: ER 11:47
DX: H57.12 Ocular pain, left eye (principal); H10.212 Acute toxic conjunctivitis, left eye; F41.9 Anxiety disorder, unspecified; I10 Essential (primary) hypertension; E78.5 Hyperlipidemia, unspecified